=== PATIENT | female | born 1985 ===

== ENCOUNTER 2018-03-11 21:53 | Emergency (ER) | payer OTHER ==
[~2018-03-11] VITALS: Ht 167.6 cm; Wt 90.7 kg
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
[2018-03-11] MEDS ORDERED: KETOROLAC 30 MG/ML VIAL. IV ONE (23:15)
[2018-03-11] MEDS ORDERED: IV NORMAL SALINE 1000ML BAG 1,000 ML IV SCH (23:15)
[2018-03-11 23:25] LABS: BASO # 0.1 x10^3/uL (0.0-0.2); BASO % 1 % (0-3); EOS # 0.1 x10^3/uL (0.0-0.7); EOS % 2 % (0-3); HEMATOCRIT 38.5 % (36.0-47.0); HEMOGLOBIN 13.1 g/dL (12.0-15.5); LYMPH # 3.7 x10^3/uL (1.0-4.8); LYMPH % 49 % (24-48); MEAN CORPUSCULAR HEMOGLOBIN 30 pg (25-35); MEAN CORPUSCULAR HGB CONC 34 g/dL (31-37); MEAN CORPUSCULAR VOLUME 88 fL (79-100); MONO # 0.5 x10^3/uL (0.0-1.1); MONO % 6 % (0-9); NEUT # 3.2 x10^3uL (1.8-7.7); NEUT % 42 % (31-73); PLATELET COUNT 269 x10^3/uL (140-400); RED BLOOD COUNT 4.36 x10^6/uL (3.50-5.40); RED CELL DISTRIBUTION WIDTH 15.1 % (11.5-14.5); WHITE BLOOD COUNT 7.6 x10^3/uL (4.0-11.0)
[2018-03-11 23:30] VITALS: BP 119/66
[2018-03-11 23:34] LABS: PREG TEST PT QUAL NEGATIVE (NEG)
[2018-03-11 23:35] LABS: CREATININE 0.9 mg/dL (0.6-1.0); POTASSIUM 3.3 mmol/L (3.5-5.1)
[2018-03-11 23:41] LABS: ALBUMIN/GLOBULIN RATIO 1.1 (1.0-1.7); TOTAL BILIRUBIN 0.2 mg/dL (0.2-1.0); TOTAL PROTEIN 7.8 g/dL (6.4-8.2)
--- NOTE | 2018-03-12 00:04 | RAD ---
CT Head W/O Contrast: History: headache Comparison: none Axial images were obtained without contrast. The infante and white matter appears normal and symmetrical for the patients age. There is no mass effect, extraaxial fluid collections or hydrocephalus. There is no gross bleed. There is no focal loss of infante-white matter distinction to suggest acute ischemia, i.e. stroke. Impression: No acute findings. RS Compliance Statement: One or more of the following individualized dose reduction techniques were utilized for this examination: 1. Automated exposure control 2. Adjustment of the mA and/or kV according to patient size 3. Use of iterative reconstruction technique Electronically signed by: Luis Angel Lindo III, MD (03/12/2018 12:00 AM) [facility]
--- NOTE | 2018-03-12 01:08 | EKG ---
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
== END 2018-03-12 00:33 | disposition home or self-care (01) ==
LOC: ER 21:53
DX: R51 Headache (principal); F41.9 Anxiety disorder, unspecified; Z98.51 Tubal ligation status
CPT/HCPCS: 36415; 70450; 80053; 81025; 84703; 85025; 93005; 96361; 96374; 96375; 99285; J1885; J2060; J7030

== ENCOUNTER 2018-03-30 23:44 | Inpatient (IN) | payer OTHER ==
[~2018-03-30] VITALS: Ht 162.6 cm; Wt 81.6 kg
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
[2018-03-31 00:26] LABS: BILIRUBIN,URINE NEGATIVE (NEG); CLARITY,URINE CLEAR; COLOR,URINE YELLOW; NITRITE,URINE NEGATIVE (NEG); PROTEIN,URINE NEGATIVE (NEG-TRACE); UROBILINOGEN,URINE 0.2 mg/dL (0.2 mg/dL)
[2018-03-31 00:30] LABS: RBC,URINE 20-40 /HPF (0-2)
[2018-03-31] MEDS ORDERED: IV NORMAL SALINE 1000ML BAG 1,000 ML IV SCH (00:30)
[2018-03-31] MEDS ORDERED: LIDOCAINE 1% PF 30 ML VIAL. INJ ONE (00:30)
[2018-03-31] MEDS ORDERED: DIPHTH,PERTUSS(ACELL),TET TOX 0.5 ML DISP.SYRIN. VAX IM ONE (00:30)
[2018-03-31] MEDS ORDERED: CONTRAST GIVEN. MC PRN (00:30)
[2018-03-31] MEDS ORDERED: ONDANSETRON PF 4 MG/2 ML VIAL. IV ONE (00:30)
[2018-03-31 00:31] LABS: BACTERIA,URINE 0 /HPF (0-FEW); SQUAMOUS EPITHELIAL CELL,UR FEW /LPF
[2018-03-31 00:33] LABS: BARBITURATES NEG (NEG); BENZODIAZEPINES NEG (NEG); CANNABINOIDS NEG (NEG); COCAINE NEG (NEG); METHADONE NEG (NEG); OPIATES NEG (NEG); PHENCYCLIDINE NEG (NEG)
[2018-03-31 00:37] LABS: AMPHETAMINE/METHAMPHETAMINE NEG (NEG)
[2018-03-31] MEDS ORDERED: HALOPERIDOL LACTATE 5 MG/ML VIAL. IM ONE (00:45)
[2018-03-31] MEDS ORDERED: IOHEXOL 300 MG/ML 100ML VIAL. IV ONE (01:00)
[2018-03-31] MEDS ORDERED: MULTIVIT INFUSN,ADULT 4,VIT K 10 ML, THIAMINE INJ 100 MG, FOLIC ACID INJ 1 MG in IV NOR... IV ONE (01:00)
[2018-03-31 01:06] LABS: BASO % 1 % (0-3); EOS % 0 % (0-3); HEMATOCRIT 38.1 % (36.0-47.0); HEMOGLOBIN 13.3 g/dL (12.0-15.5); LYMPH # 2.5 x10^3/uL (1.0-4.8); LYMPH % 29 % (24-48); MEAN CORPUSCULAR HEMOGLOBIN 31 pg (25-35); MEAN CORPUSCULAR HGB CONC 35 g/dL (31-37); MEAN CORPUSCULAR VOLUME 88 fL (79-100); MONO # 0.3 x10^3/uL (0.0-1.1); MONO % 3 % (0-9); NEUT # 5.8 x10^3uL (1.8-7.7); NEUT % 67 % (31-73); PLATELET COUNT 299 x10^3/uL (140-400); RED BLOOD COUNT 4.33 x10^6/uL (3.50-5.40); RED CELL DISTRIBUTION WIDTH 13.7 % (11.5-14.5); WHITE BLOOD COUNT 8.6 x10^3/uL (4.0-11.0)
[2018-03-31 01:18] LABS: CALCIUM 8.9 mg/dL (8.5-10.1); CREATININE 0.7 mg/dL (0.6-1.0); GFR 97.6; POTASSIUM 3.4 mmol/L (3.5-5.1); PROTHROMBIN TIME PATIENT 12.3 SEC (11.7-14.0)
[2018-03-31 01:21] LABS: ACETAMIN < 2 mcg/ml (10-30); SALIC < 2.8 mg/dL (2.8-20.0)
[2018-03-31 01:24] LABS: ALBUMIN 3.8 g/dL (3.4-5.0); ALBUMIN/GLOBULIN RATIO 0.9 (1.0-1.7); TOTAL BILIRUBIN 0.3 mg/dL (0.2-1.0); TOTAL PROTEIN 7.9 g/dL (6.4-8.2)
[2018-03-31 01:56] LABS: U PREG PATIENT NEGATIVE (NEG)
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
[2018-03-31 03:22] LABS: BASE EXCESS COOX -2 mmol/L (-3-3); HCO3 COOX 23 mmol/L (21-28); METHEMOGLOBIN 0.3 % (0.0-1.9); OXYHEMOGLOBIN 96.1 %; PCO2 COOX 40 mmHg (35-46); PO2 COOX 102 mmHg (85-108); SAT O2 COOX 97 % (92-99)
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
[2018-03-31] MEDS ORDERED: IV DEXTROSE 5%-LACT RINGERS 1,000 ML IV ONE (04:30)
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
[2018-03-31 05:11] VITALS: BP 93/50
--- NOTE | 2018-03-31 06:39 | EKG ---
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
== END 2018-03-31 07:13 | disposition left against medical advice (07) | DRG 605 ==
LOC: ER 23:44 → EEVIPCON 23:44 → 6 SOUTH 03-31 04:10 → EEVIPCON 03-31 04:10
PROVIDERS: ADMIT Family Medicine; ATTEND Family Medicine
PROC: 0HQDXZZ Repair Right Lower Arm Skin, External Approach (ICD-10-PCS; principal; 2018-03-31)
DX: S51.011A Laceration without foreign body of right elbow, initial encounter (principal); S02.31XA Fracture of orbital floor, right side, initial encounter for closed fracture; S30.1XXA Contusion of abdominal wall, initial encounter; F10.10 Alcohol abuse, uncomplicated; N85.4 Malposition of uterus; Z53.21 Procedure and treatment not carried out due to patient leaving prior to being seen by health care provider; V47.5XXA Car driver injured in collision with fixed or stationary object in traffic accident, initial encounter; Y92.410 Unspecified street and highway as the place of occurrence of the external cause; Y93.I9 Activity, other involving external motion; Z98.51 Tubal ligation status
CPT/HCPCS: 12002; 36415; 36600; 70450; 70486; 71045; 71260; 72125; 73080; 74177; 80053; 80307; 80329; 81001; 81025; 82150; 82805; 83605; 83690; 85025; 85610; 85730; 86850; 86900; 86901; 87086; 90471; 90715; 93005; 96361; 96365; 96372; G0480; G6039; J1630; J7030; Q9967; 99285-25; G0479

== ENCOUNTER 2018-03-31 20:17 | Emergency (ER) | payer OTHER ==
[~2018-03-31] VITALS: Ht 167.6 cm; Wt 81.6 kg
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
[2018-03-31 21:53] LABS: BASO # 0.1 x10^3/uL (0.0-0.2); BASO % 1 % (0-3); EOS % 0 % (0-3); HEMATOCRIT 35.2 % (36.0-47.0); HEMOGLOBIN 12.2 g/dL (12.0-15.5); LYMPH # 3.3 x10^3/uL (1.0-4.8); LYMPH % 33 % (24-48); MEAN CORPUSCULAR HEMOGLOBIN 31 pg (25-35); MEAN CORPUSCULAR HGB CONC 35 g/dL (31-37); MEAN CORPUSCULAR VOLUME 88 fL (79-100); MONO # 0.5 x10^3/uL (0.0-1.1); MONO % 6 % (0-9); NEUT % 60 % (31-73); PLATELET COUNT 288 x10^3/uL (140-400); RED BLOOD COUNT 4.01 x10^6/uL (3.50-5.40); WHITE BLOOD COUNT 9.9 x10^3/uL (4.0-11.0)
[2018-03-31 22:04] LABS: CALCIUM 8.8 mg/dL (8.5-10.1); CREATININE 0.7 mg/dL (0.6-1.0); GFR 97.6
[2018-03-31 22:09] LABS: POTASSIUM 2.9 mmol/L (3.5-5.1)
[2018-03-31] MEDS ORDERED: POTASSIUM CHLORIDE 20 MEQ TABLET.ER. PO ONE (22:30)
[2018-03-31] MEDS ORDERED: MAGNESIUM OXIDE 400 MG TABLET PO ONE (22:30)
[2018-03-31 22:50] VITALS: BP 134/66
[2018-03-31 23:00] LABS: BASE EXCESS ABG -1 mmol/L (-3-3); CORRECTED PCO2 ABG 33 mmHg; CORRECTED PH ABG 7.45; CORRECTED PO2 ABG 87 mmHg; HCO3 ABG 23 mmol/L (21-28); SAT O2 ABG 96 % (92-99)
[2018-03-31 23:02] LABS: PCO2 ABG 33 mmHg (35-46); PO2 ABG 85 mmHg (85-108)
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
--- NOTE | 2018-04-01 07:33 | EKG ---
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
== END 2018-03-31 22:51 | disposition home or self-care (01) ==
LOC: ER 20:17
DX: S30.1XXA Contusion of abdominal wall, initial encounter (principal); R06.00 Dyspnea, unspecified; V49.9XXA Car occupant (driver) (passenger) injured in unspecified traffic accident, initial encounter; Y93.89 Activity, other specified; Y92.410 Unspecified street and highway as the place of occurrence of the external cause; Y99.8 Other external cause status; Z98.51 Tubal ligation status
CPT/HCPCS: 36415; 36600; 71046; 80048; 82553; 82805; 83880; 84484; 85025; 93005; 99285-25

== ENCOUNTER 2019-05-18 18:38 | Emergency (ER) | payer SELFPAY ==
[~2019-05-18] VITALS: Ht 167.6 cm; Wt 90.7 kg
[2019-05-18 18:52] VITALS: BP 159/80
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
[2019-05-18] MEDS ORDERED: HYDROcodone/APAP 5/325MG 1 TAB TABLET PO ONE (19:15)
[2019-05-18] MEDS ORDERED: ORPHENADRINE CITRATE 60 MG/2 ML VIAL. IM ONE (19:15)
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
[2019-05-18] MEDS ORDERED: ORPH100T PO (21:02)
[2019-05-18] MEDS ORDERED: OXYC1TAB15 PO (21:02)
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
== END 2019-05-18 21:09 | disposition home or self-care (01) ==
LOC: ER 18:38
DX: S80.02XA Contusion of left knee, initial encounter (principal); M79.675 Pain in left toe(s); R51 Headache; F10.20 Alcohol dependence, uncomplicated; Y90.9 Presence of alcohol in blood, level not specified; Z98.51 Tubal ligation status; Y04.0XXA Assault by unarmed brawl or fight, initial encounter; Y93.89 Activity, other specified; Y92.89 Other specified places as the place of occurrence of the external cause; Y99.8 Other external cause status
CPT/HCPCS: 70450; 70486; 73564; 73630; 96372; 99284; J2360